=== PATIENT | male | born 1940 | race Caucasian/White ===

== ENCOUNTER 2020-03-12 13:38 | Outpatient (CLI) | payer MEDICARE, OTHER ==
[2020-03-12] MEDS ORDERED: LOSA1TAB36 PO (14:40)
[2020-03-12] MEDS ORDERED: WARF-55 PO (14:40)
[2020-03-12] MEDS ORDERED: DICY10CA88 PO (14:40)
[2020-03-12] MEDS ORDERED: PANT-47 PO (14:40)
[2020-03-12] MEDS ORDERED: METO50TA7 PO (14:40)
[2020-03-12 15:21] LABS: PRE OP PROTIME 16.7 SECONDS (9.0-12.0)
[2020-03-12 15:22] LABS: ALBUMIN/GLOBULIN RATIO 1.1 (1.1-1.5); ALKALINE PHOSPHATASE 83 IU/L (46-116); BLOOD UREA NITROGEN 18 MG/DL (7-18); BUN/CREATININE RATIO 14.9 (5.4-32.0); CHLORIDE 100 MMOL/L (99-107); CREATININE 1.21 MG/DL (0.60-1.10); PRE OP ALT 42 U/L (30-65); PRE OP ANION GAP 8 (8-16); PRE OP AST 31 U/L (10-37); PRE OP BILIRUB, TOTAL 1.1 MG/DL (0.0-1.0); PRE OP GLUCOSE 97 MG/DL (70-104); PRE OP SODIUM 139 MMOL/L (135-145); TOTAL PROTEIN 7.6 G/DL (6.4-8.2); eGFR 58 ML/MIN
[2020-03-12 15:28] LABS: PRE OP INR 1.6 INR
[2020-03-12 15:44] LABS: MEAN CORPUSCULAR HEMOGLOBIN 30.9 PG (27.0-31.0); MEAN CORPUSCULAR HGB CONC 33.9 g/dL (33.0-36.5); MEAN CORPUSCULAR VOLUME 91.3 FL (78-98); MEAN PLATELET VOLUME 8.6 FL (7.4-10.4); PRE OP HEMOGLOBIN 14.9 g/dL (14.0-17.9); RED BLOOD COUNT 4.82 X10'6 (4.70-6.10); RED CELL DISTRIBUTION WIDTH 13.1 % (11.5-14.5)
[2020-03-12 16:01] LABS: PRE OP PLATELET COUNT 87 X10'3 (140-440)
[2020-03-12 17:19] LABS: PLATELET ESTIMATE DECREASED; TOTAL CELLS COUNTED 100
[2020-03-12 17:20] LABS: LARGE PLATELETS FEW
== END 2020-03-12 23:59 | disposition home or self-care (01) ==
LOC: PRE-OP 13:38 → EDSTATUS 04-02 10:00
PROVIDERS: ATTEND Surgery
DX: Z01.812 Encounter for preprocedural laboratory examination (principal); U07.1 COVID-19; I45.10 Unspecified right bundle-branch block; I49.8 Other specified cardiac arrhythmias; I10 Essential (primary) hypertension; Z86.718 Personal history of other venous thrombosis and embolism; Z79.01 Long term (current) use of anticoagulants
CPT/HCPCS: 36415; 80053; 85007; 85025; 85610; 85730; 87635; 93005

== ENCOUNTER 2020-06-11 05:25 | Day surgery (SDC) | payer MEDICARE, OTHER ==
[2020-06-04 10:43] LABS: ALBUMIN 3.9 G/DL (3.4-5.0); ALBUMIN/GLOBULIN RATIO 1.1 (1.1-1.5); ALKALINE PHOSPHATASE 83 IU/L (46-116); BLOOD UREA NITROGEN 23 MG/DL (7-18); BUN/CREATININE RATIO 19.5 (5.4-32.0); CALCIUM 9.1 MG/DL (8.5-10.1); CHLORIDE 104 MMOL/L (99-107); CREATININE 1.18 MG/DL (0.60-1.10); PRE OP ALT 28 U/L (30-65); PRE OP ANION GAP 8 (8-16); PRE OP AST 24 U/L (10-37); PRE OP BILIRUB, TOTAL 0.6 MG/DL (0.0-1.0); PRE OP GLUCOSE 100 MG/DL (70-104); PRE OP INR 2.8 INR; PRE OP POTASSIUM 4.2 MMOL/L (3.4-5.1); PRE OP SODIUM 140 MMOL/L (135-145); TOTAL CARBON DIOXIDE 28.1 MMOL/L (24-32); TOTAL PROTEIN 7.3 G/DL (6.4-8.2); eGFR 60 ML/MIN
[2020-06-04 11:19] LABS: BASOPHILS % (AUTO) 0.5 % (0-1); EOSINOPHILS # (AUTO) 0.3 X10'3 (0-0.9); EOSINOPHILS % (AUTO) 5.7 % (0-6); LYMPHOCYTES # (AUTO) 1.2 X10'3 (1.1-4.8); LYMPHOCYTES % (AUTO) 22.6 % (21-51); MEAN CORPUSCULAR HGB CONC 33.7 g/dL (33.0-36.5); MEAN CORPUSCULAR VOLUME 94.8 FL (78-98); MEAN PLATELET VOLUME 8.5 FL (7.4-10.4); MONOCYTES # (AUTO) 0.7 X10'3 (0-0.9); NEUTROPHILS # (AUTO) 3.2 X10'3 (1.8-7.7); NEUTROPHILS % (AUTO) 59.2 % (42-75); PRE OP HEMOGLOBIN 14.9 g/dL (14.0-17.9); PRE OP PLATELET COUNT 156 X10'3 (140-440); RED BLOOD COUNT 4.64 X10'6 (4.70-6.10); RED CELL DISTRIBUTION WIDTH 14.5 % (11.5-14.5)
[2020-06-11] VITALS (9 sets, daily range): BP systolic 130–156; BP diastolic 72–80
[~2020-06-11] VITALS: Ht 188 cm; Wt 99.8 kg
[~2020-06-11 05:25] MED LIST: DICY10CA88 PO; LOSA1TAB36 PO; METO50TA7 PO; PANT-47 PO; WARF-55 PO; ringers solution, lacted 1,000 ML IV SCH
[2020-06-11] MEDS ORDERED: cefazolin/dext.iso 2gm/100ml IV ONE (05:30)
[2020-06-11] MEDS ORDERED: DOCUMENT DATE & TIME OF BETA-BLOCKER PO ONE (05:30)
[2020-06-11] MEDS ORDERED: famotidine 20mg tablet PO ONE (05:30)
[2020-06-11] MEDS ORDERED: BUPIVAcaine/PF 2.5 mg/ml (0.25%) 30ml vial ONE (06:53)
[2020-06-11] MEDS ORDERED: LIDOcaine 1% 30ml preserv. free vial ONE (06:53)
[2020-06-11] MEDS ORDERED: ondansetron/PF 4mg/2ml inj IV PRN (07:10)
[2020-06-11] MEDS ORDERED: hydrALAZINE 20mg/ml inj. IV PRN (07:10)
[2020-06-11] MEDS ORDERED: fentaNYL/PF 50MCG/1 ML 2ML syringe IV PRN ×2 (07:10)
[2020-06-11] MEDS ORDERED: labetalol 20mg/4ml (5mg/ml) syringe IV PRN (07:10)
[2020-06-11] MEDS ORDERED: ringers solution, lacted 1,000 ML IV SCH (07:10)
[2020-06-11] MEDS ORDERED: morphine 2 MG/ML inj. syringe IV PRN (07:10)
[2020-06-11] MEDS ORDERED: morphine 4 MG/ML inj SYRINge IV PRN (07:10)
[2020-06-11] MEDS ORDERED: fentaNYL/PF 50MCG/1 ML 2ML syringe ONE (07:13)
[2020-06-11] MEDS ORDERED: midazolam 1 mg/ML 2ml injection ONE (07:13)
[2020-06-11] MEDS ORDERED: propofol inj 20 ML IV ONE (07:14)
[2020-06-11] MEDS ORDERED: LIDOcaine 2% (20mg/ml) 5ml vial ONE (07:14)
[2020-06-11] MEDS ORDERED: neostigmine methylsulfate 1 MG/ML 10ml vial ONE (07:14)
[2020-06-11] MEDS ORDERED: dexamethasone sod phosphate 10mg/ml inj ONE (07:14)
[2020-06-11] MEDS ORDERED: sevoflurane 250ml liquid IH ONE (07:14)
[2020-06-11] MEDS ORDERED: ondansetron/PF 4mg/2ml inj ONE (07:15)
[2020-06-11] MEDS ORDERED: glycopyrrolate 0.2mg/ml inj ONE (07:15)
[2020-06-11] MEDS ORDERED: rocuronium 10mg/ml inj IV ONE (07:15)
--- NOTE | 2020-06-11 09:05 | NUR ---
ADMITTED TO PACU FROM OR ACCOMPANIED BY ANESTHESIA. INTIAL PHYSICAL ASSESSMENT DONE AND RECORDED. REPORT RECEIVED FROM ANESTHESIA.
[2020-06-11] MEDS ORDERED: HYDROcodone/acetaminophen 5mg/325mg tablet PO PRN ×2 (09:15)
--- NOTE | 2020-06-11 10:30 | NUR ---
DISCHARGE CRITERIA MET, DISCHARGE INSTRUCTIONS GIVEN, DEMONSTRATES VERBAL UNDERSTANDING. DISCHARGED HOME IN GOOD CONDITION.
== END 2020-06-11 10:30 | disposition home or self-care (01) ==
LOC: PAS 05:25
PROVIDERS: ATTEND Surgery
DX: K40.31 Unilateral inguinal hernia, with obstruction, without gangrene, recurrent (principal); K21.9 Gastro-esophageal reflux disease without esophagitis; K58.9 Irritable bowel syndrome, unspecified; I10 Essential (primary) hypertension; Z98.41 Cataract extraction status, right eye; Z98.890 Other specified postprocedural states; Z79.899 Other long term (current) drug therapy; Z86.718 Personal history of other venous thrombosis and embolism; Z79.01 Long term (current) use of anticoagulants; Z87.891 Personal history of nicotine dependence; Z86.73 Personal history of transient ischemic attack (TIA), and cerebral infarction without residual deficits; Z72.89 Other problems related to lifestyle; Z82.49 Family history of ischemic heart disease and other diseases of the circulatory system; Z83.3 Family history of diabetes mellitus
CPT/HCPCS: 36415; 49651; 80053; 82948; 85025; 85610; 85730; C1781; J1100; J2001; J2250; J2405; J2704; J2710; J3010; J3490; J7120; A4215; A4618